=== PATIENT | male | born 1975 | race Caucasian/White ===

== ENCOUNTER 2018-03-04 11:08 | Emergency (ER) | payer OTHER ==
--- NOTE | 2018-03-04 12:43 | RAD REPORT ---
EXAM DESCRIPTION: US - Scrotum Testicles - 03/04/2018 12:33 pm CLINICAL HISTORY: Left-sided testicular pain. Preliminary findings provided at the time of the study. COMPARISON: None. FINDINGS: Testicular tissue is homogeneous. No intratesticular mass lesions are identifiable. Dopple r assessment was performed. Blood flow is identifiable in each testicle. Left testicular blood flow i s increased relative to the right. Small left hydrocele is present. No epididymis enlargement or hype remia. No hernia identified. IMPRESSION: No testicular mass. Doppler evaluation shows blood flow in each testicle, increased slig htly in the left. Findings would be consistent with a mild orchitis.
--- NOTE | 2018-03-04 12:54 | EDPHYS ---
Physician Documentation [facility] Name: Luciano Barrios Age: 42 yrs Sex: Male : 1975 Arrival Date: 03/04/2018 Time: 11:22 Bed 19 Private MD: None, None ED Physician Erich Rebollar HPI: 03/04 11:43 This 42 yrs old Male presents to ER via Ambulatory with complaints of jmm Testicular Problem. 11:43 The patient presents with scrotal pain, of the left side. Onset: The symptoms/episode jmm began/occurred gradually, 1 week(s) ago. Modifying factors: The symptoms are alleviated by nothing, the symptoms are aggravated by nothing. Associated signs and symptoms: Pertinent negatives: fever. This is a 42 year old male with no chronic medical conditions that presents to the ED with left sided scrotal swelling for 1 week. Patient denies fever, abdominal pain, or vomiting. Patient denies trauma. . Historical: - Allergies: 11:25 PENICILLINS; aj1 - Home Meds: 11:25 Zyrtec Oral [Active]; aj1 - PMHx: 11:25 None; aj1 - PSHx: 11:25 None; aj1 - Immunization history:: Adult Immunizations up to date. - Social history:: Smoking status: Patient/guardian denies using tobacco. - Ebola Screening: : Patient denies travel to an Ebola-affected area in the 21 days before illness onset. ROS: 11:43 Constitutional: Negative for fever, chills, and weight loss, Cardiovascular: Negative jmm for chest pain, palpitations, and edema, Respiratory: Negative for shortness of breath, cough, wheezing, and pleuritic chest pain, Abdomen/GI: Negative for abdominal pain, nausea, vomiting, diarrhea, and constipation, Back: Negative for injury and pain. 11:43 : Positive for testicular pain 11:43 All other systems are negative. Exam: 11:43 Head/Face: atraumatic. Chest/axilla: Normal chest wall appearance and motion. jmm Cardiovascular: Regular rate and rhythm. No edema appreciated Respiratory: Normal respirations, no respiratory distress appreciated Abdomen/GI: Non distended, soft 11:43 Constitutional: The patient appears in no acute distress, alert, awake. 11:43 : Male external genitalia: tenderness, of the epididymis area, that is mild. 11:43 Skin: Appearance: Color: normal in color. 11:43 Neuro: Orientation: is normal, Mentation: is normal, Memory: is normal. 11:43 Psych: Behavior/mood is pleasant, cooperative. Vital Signs: 11:25 BP 136 / 96; Pulse 75; Resp 18; Temp 97.6(TE); Pulse Ox 100% on R/A; Weight 90.72 kg aj1 (R); Height 5 ft. 10 in. (177.80 cm) (R); Pain 0/10; 12:50 BP 134 / 92; Pulse 73; Resp 18; Pulse Ox 99% on R/A; Pain 0/10; em 11:25 Body Mass Index 28.70 (90.72 kg, 177.80 cm) [facility] MDM: 11:43 Patient medically screened. [facility] 12:49 Data reviewed: vital signs, nurses notes. Counseling: I had a detailed discussion with [facility] the patient and/or guardian regarding: the historical points, exam findings, and any diagnostic results supporting the discharge/admit diagnosis, radiology results, the need for outpatient follow up, to return to the emergency department if symptoms worsen or persist or if there are any questions or concerns that arise at home. 12:49 Data reviewed: lab test result(s), radiologic studies, ultrasound. [facility] 03/04 11:43 Order name: US Scrotum Testicles; Complete Time: 12:45 [facility] 03/04 11:43 Order name: Urine Dipstick-Ancillary (obtain specimen); Complete Time: 12:53 [facility] Administered Medications: No medications were administered Disposition: 16:42 Co-signature as Attending Physician, Erich Rebollar MD. rn Disposition: 03/04/18 12:53 Discharged to Home. Impression: Orchitis and epididymitis. - Condition is Stable. - Discharge Instructions: Epididymitis, Orchitis. - Prescriptions for Cipro 500 mg Oral Tablet - take 1 tablet by ORAL route every 12 hours for 7 days; 20 tablet. - Medication Reconciliation Form, Thank You Letter, Antibiotic Education, Prescription Opioid Use form. - Follow up: Demetri Green MD; When: 2 - 3 days; Reason: Recheck today's complaints, Continuance of care, Re-evaluation by your physician. Signatures: Dispatcher [employer] Aundrea Adame RN RN aj1 Mando Scruggs PA PA jmm Musa Rea, PRESCRIPTIONIST PRESCRIPTIONIST em Erich Rebollar MD MD chief learning officer: (The following items were deleted from the chart) 13:03 12:53 03/04/2018 12:53 Discharged to Home. Impression: Orchitis and epididymitis. em Condition is Stable. Forms are Medication Reconciliation Form, Thank You Letter, Antibiotic Education, Prescription Opioid Use. Follow up: Demetri Green; When: 2 - 3 days; Reason: Recheck today's complaints, Continuance of care, Re-evaluation by your physician. chidi
--- NOTE | 2018-03-04 12:54 | ER ---
Nurse's Notes [facility] Name: Luciano Barrios Age: 42 yrs Sex: Male : 1975 Arrival Date: 03/04/2018 Time: 11:22 Bed 19 Private MD: None, None Diagnosis: Orchitis and epididymitis Presentation: 03/04 11:23 Presenting complaint: Patient states: One week ago his left testicle suddenly was aj1 higher than the other testicle. Patient denies pain, states he thought it would get descend back on its own but so far it has not. Denies fever. Transition of care: patient was not received from another setting of care. Onset of symptoms was February 24, 2018. Risk Assessment: Do you want to hurt yourself or someone else? Patient reports no desire to harm self or others. Initial Sepsis Screen: Does the patient meet any 2 criteria? No. Patient's initial sepsis screen is negative. Does the patient have a suspected source of infection? No. Patient's initial sepsis screen is negative. Care prior to arrival: None. 11:23 Method Of Arrival: Ambulatory [facility] 11:23 Acuity: MACO 3 aj1 Triage Assessment: 11:25 General: Appears in no apparent distress. comfortable, Behavior is calm, cooperative, aj1 appropriate for age. Pain: Denies pain. Neuro: Level of Consciousness is awake, alert, obeys commands. Cardiovascular: Patient's skin is warm and dry. Respiratory: Airway is patent Respiratory effort is even, unlabored, Respiratory pattern is regular, symmetrical. Historical: - Allergies: 11:25 PENICILLINS; aj1 - Home Meds: 11:25 Zyrtec Oral [Active]; aj1 - PMHx: 11:25 None; aj1 - PSHx: 11:25 None; aj1 - Immunization history:: Adult Immunizations up to date. - Social history:: Smoking status: Patient/guardian denies using tobacco. - Ebola Screening: : Patient denies travel to an Ebola-affected area in the 21 days before illness onset. Screenin:36 Abuse screen: Denies threats or abuse. Nutritional screening: No deficits noted. em Tuberculosis screening: No symptoms or risk factors identified. Fall Risk None identified. Assessment: 12:00 General: Appears in no apparent distress. comfortable, Behavior is calm, Denies fever. em Pain: Denies pain. Neuro: Level of Consciousness is awake, alert, obeys commands, Oriented to person, place, time, situation. Cardiovascular: Capillary refill < 3 seconds Patient's skin is warm and dry. Respiratory: Airway is patent Respiratory effort is even, unlabored, Respiratory pattern is regular, symmetrical. GI: Abdomen is flat, Patient currently denies nausea, vomiting. : Genitalia appear normal on penis on scrotum Denies burning with urination, pain. EENT: No signs and/or symptoms were reported regarding the EENT system. Derm: Skin is intact, Skin is pink, warm \T\ dry. Musculoskeletal: Capillary refill < 3 seconds, Range of motion: intact in all extremities. 12:55 Reassessment: Patient appears in no apparent distress at this time. Patient and/or em family updated on plan of care and expected duration. Pain level reassessed. Patient is alert, oriented x 3, equal unlabored respirations, skin warm/dry/pink. Patient denies pain at this time. Vital Signs: 11:25 BP 136 / 96; Pulse 75; Resp 18; Temp 97.6(TE); Pulse Ox 100% on R/A; Weight 90.72 kg aj1 (R); Height 5 ft. 10 in. (177.80 cm) (R); Pain 0/10; 12:50 BP 134 / 92; Pulse 73; Resp 18; Pulse Ox 99% on R/A; Pain 0/10; em 11:25 Body Mass Index 28.70 (90.72 kg, 177.80 cm) aj1 ED Course: 11:22 Patient arrived in ED. sb2 11:22 None, None is Private Physician. sb2 11:25 Triage completed. aj1 11:25 Arm band placed on Patient placed in an exam room. aj1 11:32 Mando Scruggs PA is PHCP. jmm 11:32 Erich Rebollar MD is Attending Physician. jmm 11:54 Musa Rea LVN is Primary Nurse. em 12:00 Patient has correct armband on for positive identification. Placed in gown. Bed in low em position. Call light in reach. 12:23 Ultrasound completed. Patient tolerated well. sg3 12:30 Urine collected: clean catch specimen, clear. em 12:33 US Scrotum Testicles In Process Unspecified. EDMS 12:53 Demetri Green MD is Referral Physician. [facility] 13:01 No provider procedures requiring assistance completed. Patient did not have IV access em during this emergency room visit. Administered Medications: No medications were administered Outcome: 12:53 Discharge ordered by . m 13:01 Discharged to home ambulatory. em 13:01 Condition: good 13:01 Discharge instructions given to patient, Instructed on discharge instructions, follow up and referral plans. medication usage, Demonstrated understanding of instructions, follow-up care, medications, Prescriptions given X 1. 13:03 Patient left the ED. em Signatures: Dispatcher [employer] EDAundrea Sun RN RN aj1 Mando Scruggs PA PA m Musa Rea, INSTRUCTIONAL TECHNOLOGY FACILITATOR INSTRUCTIONAL TECHNOLOGY FACILITATOR Jadyn Acharya 3 Nesha Thorne sb2
== END 2018-03-04 13:03 | disposition home or self-care (01) ==
LOC: ER 11:08
DX: N45.3 Epididymo-orchitis (principal); Z88.0 Allergy status to penicillin
CPT/HCPCS: 76870; 99283